=== PATIENT | female | born 1995 | race Two or more races ===

== ENCOUNTER → 2018-12-14 | Outpatient (CLI) | payer OTHER | END | disposition home or self-care (01) | LOC: CFH 13:40 | PROVIDERS: ATTEND Nurse Practitioner Primary Care | DX: N63.0 Unspecified lump in unspecified breast (principal) | CPT/HCPCS: 76642 ==

== ENCOUNTER 2019-12-04 18:09 | Emergency (ER) | payer OTHER ==
[~2019-12-04] VITALS: Ht 160 cm; Wt 125.8 kg
[2019-12-04 18:19] VITALS: BP 124/70
--- NOTE | 2019-12-04 19:20 | NUR ---
PRECEPTOR RN: PT TO ROOM FROM [facility]
--- NOTE | 2019-12-04 19:20 | NUR ---
LATE ENTRY: FIRST CONTACT PT SITTING UP IN RNEY, TEARS IN EYES, PT HOLDING HEAD. STATES "KELLIE HAD A MIGRAINE FOR TWO DAYS." PT DENIES HEAD TRAUMA, REPORTS SIMILAR MIGRAINES IN THE PAST. DENIES ANY MEDICATIONS PRIOR TO ARRIVAL. PT REPORTS LIGHT SENSITIVITY. GROSS NEURO INTACT, PERRLA, DENIES WEAKNESS, NUMBNESS OR TINGLING. PT PLACED ON SPO2/BP MONITORING. VSS. LIGHTS DIMMED FOR COMFORT. WCANDRY. LELA COVARRUBIAS AT BS FOR MAGEN
[2019-12-04] MEDS ORDERED: DEXAMETHASONE 4 MG/ML, 5ML ONE (19:38)
[2019-12-04] MEDS ORDERED: DIPHENHYDRAMINE 50 MG/ML, 1ML ONE (19:39)
[2019-12-04] MEDS ORDERED: KETOROLAC 30 MG/1 ML ONE (19:39)
[2019-12-04] MEDS ORDERED: METOCLOPRAMIDE 5 MG/ML, 2ML ONE (19:39)
[2019-12-04] MEDS ORDERED: DIPHENHYDRAMINE 25 MG CAPSULE ONE (19:39)
[2019-12-04] MEDS ORDERED: SODIUM CHLORIDE FLUSH 10ML SYR IVF ONE (20:00)
[2019-12-04] MEDS ORDERED: KETOROLAC 30 MG/1 ML IVPush ONE (20:00)
[2019-12-04] MEDS ORDERED: DEXAMETHASONE 4 MG/ML, 1ML IVPush ONE (20:00)
[2019-12-04] MEDS ORDERED: PLEASE ENTER ALLERGIES MC SCH (20:00)
[2019-12-04] MEDS ORDERED: METOCLOPRAMIDE 5 MG/ML, 2ML IVPush ONE (20:00)
[2019-12-04] MEDS ORDERED: DIPHENHYDRAMINE 50 MG/ML, 1ML IVPush ONE (20:00)
--- NOTE | 2019-12-04 20:47 | NUR ---
PT TO PT ROOM, PT SITTING UP IN [place]. PT STATES SHE IS "SUPER ANXIOUS AND WORKED UP AND HOT", RN OFFERED TO TALKED TO MD BUT PT STATING "I JUST WANT TO LEAVE". RN REMOVED IV AND GAVE PT DC PAPERWORK. PT VERBALLY CONFIRMED UNDERSTANDING OF DC INSTRUCTIONS AND SCRIPT. PT GIVEN WORK NOTE PER REQUEST. PT IS NAD, VSS, SKIN COLOR WNL/WARM/DRY UPON DISCHARGE. DC'D WITH A SMOOTH AND STEADY GAIT, NO BELONGINGS LEFT IN ROOM UPON DC.
== END 2019-12-04 20:51 ==
LOC: ED 20:45
DX: G43.001 Migraine without aura, not intractable, with status migrainosus (principal)
CPT/HCPCS: 96374; 96375; 99284; J1100; J1200; J1885; J2765

== ENCOUNTER → 2020-06-20 | Outpatient (CLI) | payer OTHER ==
[~2020-06-20] MED LIST: OMNIPAQUE 350 MG/ML, 100ML BOTTLE ONE
== END | disposition home or self-care (01) ==
LOC: CFH 13:18
PROVIDERS: ATTEND Family Medicine
DX: R10.9 Unspecified abdominal pain (principal)
CPT/HCPCS: 74177; Q9967

== ENCOUNTER 2020-07-10 18:43 | Emergency (ER) | payer OTHER ==
[~2020-07-10] VITALS: Ht 162.6 cm; Wt 117.9 kg
--- NOTE | 2020-07-10 18:58 | NUR ---
pt came into ed tonight for low back pain, states it is sharp and "it started thursday and is across my entire lower back", reports pain is worse on the right and once while driving right leg went numb briefly. pt still has motion in legs, denies paralysis, no loss of continence or gu changes. [facility]. kendal norton at for eval and poc. pt placed on spo2/bp at this time. bed in lowest, rails engaged, call light on lap. nad.
[2020-07-10] MEDS ORDERED: CYCLOBENZAPRINE 10 MG TABLET ONE (19:15)
[2020-07-10] MEDS ORDERED: KETOROLAC 60 MG/2 ML ONE (19:15)
[2020-07-10 19:19] VITALS: BP 110/82
--- NOTE | 2020-07-10 19:21 | NUR ---
pt medicated per mar for pain, sitting on gurney, no change in condition at this time, wctm.
[2020-07-10] MEDS ORDERED: KETOROLAC 30 MG/1 ML IM ONE (19:30)
[2020-07-10] MEDS ORDERED: CYCLOBENZAPRINE 10 MG TABLET PO ONE (19:30)
--- NOTE | 2020-07-10 20:03 | NUR ---
DR SMITH AT BEDSIDE FOR POC DISCUSSION, ALL QUESTIONS ADDRESSED AT THIS TIME.
--- NOTE | 2020-07-10 20:05 | NUR ---
Patient/Caregiver given discharge instructions and they have confirmed that they understand the instructions. Patient ambulatory with steady gait.
== END 2020-07-10 20:20 | disposition home or self-care (01) ==
LOC: ED 19:20
DX: S39.012A Strain of muscle, fascia and tendon of lower back, initial encounter (principal); G43.909 Migraine, unspecified, not intractable, without status migrainosus; X50.0XXA Overexertion from strenuous movement or load, initial encounter; Y93.89 Activity, other specified; Y92.89 Other specified places as the place of occurrence of the external cause; Y99.8 Other external cause status
CPT/HCPCS: 72110; 96372; 99283; J1885